=== PATIENT | male | born 1960 | race Caucasian/White ===

== ENCOUNTER 2018-02-21 18:45 | Emergency (ER) | payer OTHER ==
[~2018-02-21] VITALS: Ht 177.8 cm; Wt 138.3 kg
[~2018-02-21 18:45] MED LIST: ALBU90OI INH; AZIT500 PO; Amaryl1 MG PO; Butalbital-Asa1 EAC1 PO; CEPH500 PO; CIPR500 PO; CLAR500 PO; CRUTCH3 USE; CYCL10 PO; Cinnamon500 MG PO; Cyclobenzaprine5 MG PO; DEXA4 PO; EXEDRIN MIGRAINE; Excedrin Extra1 EACH PO; FLUT.05NI; Flonase 0.05% N16 GM; GABA300 PO; GLIM2 PO; GLIM4; HYDACE10 PO; HYDACE10B PO; HYDACE5 PO; HYDGUAL120 PO; HYDMOR4 PO; HYDR1TAB94 PO; Humalog100 UNIT/1; IBUP400; IBUP800 PO; INSUASPI; INSULANPEN SC; LEVFLO500 PO; LIRA0.6P; LISI20 PO; METF500 PO; METF500C; NAPR500 PO; Naprosyn500 MG PO; Norco 5-325 Ta1 EACH PO; OXYACE5T PO; PRED20 PO; PROM25 PO; PROM25S PR; PSEU120ER; Percocet 5-3251 EACH PO; Phenergan25 M1 PO; ROSI4; RXCLIN PO; RXCYCL10 PO; RXHYDACE PO; RXOXYACE PO; RXPROM25 PO; RXPROM25S PR; RXSULTRIDS PO; SITA25T2 PO; SULTRIDS PO; TRICOR; TRICOR PO; [UNRECOGNIZED DRUG - REMARK]
[2018-02-21] MEDS ORDERED: Percocet 5-3251 EACH PO (19:59)
== END 2018-02-21 20:20 | disposition home or self-care (01) ==
LOC: ER 18:45
DX: T23.052A Burn of unspecified degree of left palm, initial encounter (principal); E11.9 Type 2 diabetes mellitus without complications; Z88.0 Allergy status to penicillin; Z88.8 Allergy status to other drugs, medicaments and biological substances; Z79.4 Long term (current) use of insulin; Z79.899 Other long term (current) drug therapy; X19.XXXA Contact with other heat and hot substances, initial encounter
CPT/HCPCS: 96372; 99283; J1170; J1885

== ENCOUNTER 2022-12-30 16:04 | Emergency (ER) | payer OTHER ==
[~2022-12-30] VITALS: Ht 177.8 cm; Wt 126.1 kg
[~2022-12-30 16:04] MED LIST changes: +IBU600 M1 PO
[2022-12-30 16:28] VITALS: BP 125/80
[2022-12-30] MEDS ORDERED: LIDOCAINE1 EACH TOP (16:55)
[2022-12-30] MEDS ORDERED: ONDA4ODT MM (16:55)
== END 2022-12-30 17:18 | disposition home or self-care (01) ==
LOC: ER 16:04
DX: M54.50 Low back pain, unspecified (principal); G89.29 Other chronic pain; Z88.0 Allergy status to penicillin; Z88.8 Allergy status to other drugs, medicaments and biological substances; Z79.899 Other long term (current) drug therapy; Z79.4 Long term (current) use of insulin; E11.9 Type 2 diabetes mellitus without complications; G43.909 Migraine, unspecified, not intractable, without status migrainosus
CPT/HCPCS: 96372; 99283-25; A9270; J1885

== ENCOUNTER 2023-04-11 09:04 | Emergency (ER) | payer OTHER ==
[~2023-04-11] VITALS: Ht 177.8 cm; Wt 126.5 kg
[~2023-04-11 09:04] MED LIST changes: +LIDOCAINE1 EACH TOP; +ONDA4ODT MM
[2023-04-11 09:22] VITALS: BP 162/90
[2023-04-11] MEDS ORDERED: INSULIN LI100 UNIT/5 (09:24)
[2023-04-11] MEDS ORDERED: LISI20 PO (09:25)
[2023-04-11] MEDS ORDERED: HYDCHL25 PO (09:26)
== END 2023-04-11 10:23 | disposition home or self-care (01) ==
LOC: ER 09:04
DX: S61.412A Laceration without foreign body of left hand, initial encounter (principal); E11.9 Type 2 diabetes mellitus without complications; W26.0XXA Contact with knife, initial encounter
CPT/HCPCS: 12002; 99282-25